=== PATIENT | male | born 1950 | race Hispanic/Latino ===

== ENCOUNTER 2024-02-28 23:54 | Emergency (ER) | payer OTHER ==
--- OUTSIDE RECORDS SUMMARY | 2024-02-28 23:58 | XMS REPORT | Clinical Summary ---
Author Name Unknown Organization [facility] Address [address] [place] [place] [address] Care Team Providers Care Sec Reporting Consultant Name Role Phone Payam Rodríguez MD Primary Care Provider [phone] Faizan Maguire MD Unavailable [phone] Simba Chávez MD Unavailable Soraya Duarte MD Unavailable [phone] Allergies Active Allergy Reactions Criticality Noted Date Comments Adhesive Dermatitis Medium 05/15/2023 Especially EKG stickers Opioids - Morphine Analogues 03/13/2023 Urinary retention He is fine with dilaudid, fentanyl, etc. Just not morphine. He understands that these too can cause urinary retention but says he is fine with it. Penicillins High 03/13/2023 Hives Medications * This document contains information received from the source organization and may not represent a complete record from that organization. aspirin 81 mg EC tablet Take 1 tablet (81 mg) by mouth daily. 021 Active metFORMIN (GLUCOPHAGE-XR) 500 mg 24 hr tablet Take 1 tablet (500 mg) by mouth 2 (two) times a day with meals. Active fenofibrate micronized (LOFIBRA) 134 mg capsule Take 1 capsule (134 mg) by mouth. Monday and Monday only Active pioglitazone (ACTOS) 15 mg tablet Take 1 tablet (15 mg) by mouth daily. 021 Active losartan (COZAAR) 25 mg tablet Take 1 tablet (25 mg) by mouth daily. 021 Active atorvastatin (LIPITOR) 10 mg tablet Take 1 tablet (10 mg) by mouth. Monday and Monday Active cholecalciferol, vitamin D3, 25 mcg (1,000 unit) capsule Take 2 capsules (2,000 Units) by mouth daily. Active omega-3 fatty acids/fish oil (FISH OIL OMEGA 3-6-9 ORAL) Take 1 capsule by mouth daily. Active ZINC ORAL Take 50 mg by mouth daily. Active multivit with minerals/lutein (MULTIVITAMIN 50 PLUS ORAL) Take 1 tablet by mouth daily. Active glucosamine/chond ro hunt A/C/Mn (GLUCOSAMINE-SOPHY DROITIN COMPLX ORAL) Take 1 tablet by mouth daily. Active cyanocobalamin (VITAMIN B-12) 1000 mcg tablet Take 1 tablet (1,000 mcg) by mouth daily. Active ascorbic acid, vitamin C, (vitamin C) 1000 mg tablet Take 1 tablet (1,000 mg) by mouth daily. Active vitamin E acetate (VITAMIN E ORAL) Take 180 Units by mouth daily. Active ferrous sulfate (iron) 325 mg (65 mg elemental iron per tablet) tablet Take 1 tablet (325 mg) by mouth every other day. Active folic acid (FOLVITE) 800 mcg tablet Take 0.5 tablets (400 mcg) by mouth daily. Active MAGNESIUM ORAL Take 500 mg by mouth daily. Active UNABLE TO FIND 10 drops twice daily. Med Name: CBD oil Active polyethylene glycol (Miralax) 17 gram/dose powderIndications :Adenocarcinoma, NOS of prostate gland Fill powder to marcela inside cap (17 g). Stir and Dissolve in any 4 to 8 ounces of beverage then drink solution as directed daily as needed (Aim for regular daily soft bowel movements. Hold if loose stool). 238 g 4 10:00 AM CDT 024 Active hyoscyamine sulfate (ANASPAZ) 0.125 mg disintegrating tabletIndications :Adenocarcinoma, NOS of prostate gland Dissolve 1 tablet (0.125 mg) on the tongue every 6 (six) hours as needed (bladder spasms). 20 tablet 4 10:00 AM CDT 024 Active ondansetron (ZOFRAN-ODT) 8 mg disintegrating tabletIndications :Adenocarcinoma, NOS of prostate gland Dissolve 1 tablet (8 mg) on the tongue every 6 (six) hours as needed for nausea. 10 tablet Active ondansetron (ZOFRAN) 8 mg tabletIndications :Adenocarcinoma, NOS of prostate gland Take 1 tablet (8 mg) by mouth every 8 (eight) hours as needed for nausea for up to 15 doses. 15 tablet Active sildenafil (Revatio) 20 mg tabletIndications :Adenocarcinoma, NOS of prostate gland Take 1 tablet (20 mg) by mouth daily. May take 3 to 5 tablets (60 mg to 100 mg) as needed 30 minutes prior to sexual intercourse on an empty stomach (72 hours apart) 60 tablet 11 Active tamsulosin (FLOMAX) 0.4 mg 24 hr capsule Take 1 capsule (0.4 mg) by mouth daily. 020 2023 Discontinued finasteride (PROSCAR) 5 mg tablet Take 1 tablet (5 mg) by mouth daily. 022 2023 Discontinued acetaminophen (Tylenol Extra Strength) 500 mg tabletIndications :Adenocarcinoma, NOS of prostate gland Take 2 tablets (1,000 mg) by mouth every 6 (six) hours for 2 days, THEN take 2 tablets (1,000 mg) every 6 (six) hours as needed for mild pain or moderate pain for up to 30 days. 40 tablet 2 4 10:00 AM T 2023 ibuprofen (ADVIL,MOTRIN) 600 mg tabletIndications :Adenocarcinoma, NOS of prostate gland Take 1 tablet (600 mg) by mouth every 6 (six) hours for 2 days, THEN take 1 tablet (600 mg) every 6 (six) hours as needed for mild pain or moderate pain for up to 30 days. 30 tablet 1 4 10:00 AM CDT 2023 enoxaparin (Lovenox) 40 mg/0.4 mL prefilled syringeIndication s:Adenocarcinoma, NOS of prostate gland Inject 0.4 mL (40 mg) under the skin daily for 20 days. 20 each 4 10:00 AM CDT 2023 Active Problems Problem Noted Date Diagnosed Date Gastric reflux 05/26/2023 Type 2 diabetes mellitus 05/26/2023 Hypertension 05/26/2023 Hyperlipidemia 05/26/2023 Dependence on continuous pos itive airway pressure ventilation 05/26/2023 Benign prostatic hyperplasia 05/26/2023 Adenocarcinoma, NOS of prostate gland 04/06/2023 Adenocarcinoma of prostate 03/14/2023 Encounters * This document contains information received from the source organization and may not represent a complete record from that organization. Date Type Department Care Team Description 10/17/2023 [facility]phone [facility] [address], [address] [place] [address] [place] [address] Katrin Knight RN 10/10/[address] [place] [address] Katrin Knight RN 07/17/2023 11:30 AM CDT [facility] [address] [place] [address] Payam Rodríguez MD Adenocarcinoma, NOS of prostate gland 07/17/2023 9:36 AM CDT - 07/17/2023 11:59 PM CDT Hospital Encounter [facility] [address] [place] [address] [place] [address] Payam Rodríguez MD Adenocarcinoma, NOS of prostate gland Discharge Disposition: Home 07/17/2023 Travel 07/11/2023 Telephone [facility] [address], [address] [place], [place] [address] [address] Katrin Knight RN 06/13/2023 Telephone [facility] [address] [place] [address] Payam Rodríguez MD 06/13/2023 Orders Only [facility] [address] [place], [place] [address] [address] Tagailo, Mike, RN Adenocarcinoma, NOS of prostate gland (Primary Dx) 06/05/2023 Documentation Case Management [address] [place] [id number] Josh Mota RN 06/04/2023 Telephone [facility] [address] [place] [address], [facility] [place] [address] Gordon Monreal PA 06/02/2023 Telephone [facility] [place] [facility] On[facility] [address] [place] [address], [facility] [place] [address] Mahnaz Maguire RN 05/24/2023 1:25 PM CDT - 05/24/2023 6:50 PM CDT Surgery MAIN OR [address] [place] [address] Payam Rodríguez MD ROBOTIC ASSISTED PROSTATECTOMY 05/24/2023 11:52 AM CDT Anesthesia Event MAIN OR [address] [place] [address] Juana Valdez MD 05/24/2023 10:12 AM CDT - 05/26/2023 2:15 PM CDT Hospital Encounter MAIN P09B [address] [place] [address] Payam Rodríguez MD Adenocarcinoma, NOS of prostate gland (Primary Dx) Discharge Disposition: Home 05/24/2023 Travel 05/23/2023 11:00 AM CDT - 05/23/2023 11:59 PM CDT Hospital [facility] [address] [place] [address], [facility] [place] [address] Payam Rodríguez MD Adenocarcinoma, NOS of prostate gland Discharge Disposition: Home 05/23/2023 [facility] [address] [place] [address], [facility] [place] [address] Gordon Monreal PA Adenocarcinoma, NOS of prostate gland (Primary Dx) 05/22/2023 Travel 05/19/2023 Orders Only [facility] [address] [place] [address], [facility] [place] [address] Gordon Monreal PA Adenocarcinoma, NOS of prostate gland (Primary Dx) 05/17/2023 11:59 PM CDT Anesthesia Event [facility] [address] [place] [address] Dmoonique Contreras APRN,AGACNP 05/17/2023 10:45 AM CDT POEM Appointments [facility] [address] [place] [address] Payam Rodríguez MD Adenocarcinoma, NOS of prostate gland 05/15/2023 11:00 AM CDT Office Visit [facility] [address] [place] [address] Payam Rodríguez MD Adenocarcinoma, NOS of prostate gland 05/15/2023 Travel 05/13/2023 1:15 PM CDT Ancillary Procedure [facility] [place] [address] Payam Rodríguez MD Adenocarcinoma, NOS of prostate gland 05/13/2023 12:15 PM CDT - 05/13/2023 11:59 PM CDT Hospital Encounter [facility] [address] [place] [address] Payam Rodríguez MD Adenocarcinoma, NOS of prostate gland Discharge Disposition: Home 04/06/2023 Orders Only [facility] [address] [place] [address] Gordon Monreal PA Adenocarcinoma, NOS of prostate gland (Primary Dx) 04/06/2023 Prep for Surgery [facility] [address] [place] [address], [address] [place], [place] [address] [address] Gordon Monreal PA Adenocarcinoma, NOS of prostate gland (Primary Dx) 04/06/2023 Orders Only [facility] [address] [place] [address], [address] [place], [place] [address] [address] Gordon Monreal PA Adenocarcinoma, NOS of prostate gland (Primary Dx) 03/18/2023 8:25 PM SENIOR BIOSTATISTICIAN/GROUP LEADER Ancillary Procedure [facility] [address] [place] [address] Payam Rodríguez MD Cancer 03/18/2023 8:20 PM SENIOR BIOSTATISTICIAN/GROUP LEADER Ancillary Procedure [facility] [address] [place] [address] Payam Rodríguez MD Cancer 03/18/2023 8:15 PM SENIOR BIOSTATISTICIAN/GROUP LEADER Ancillary Procedure [facility] [address] [place] [address] Payam Rodríguez MD Cancer 03/18/2023 8:10 PM SENIOR BIOSTATISTICIAN/GROUP LEADER Ancillary Procedure [facility] [address] [place] [address] Payam Rodríguez MD Cancer 03/18/2023 8:05 PM SENIOR BIOSTATISTICIAN/GROUP LEADER Ancillary Procedure [facility] [address] [place] [address] Payam Rodríguez MD Cancer 03/18/2023 8:00 PM SENIOR BIOSTATISTICIAN/GROUP LEADER Ancillary Procedure [facility] [address] [place] [address] Payam Rodríguez MD Cancer 03/13/2023 10:30 AM SENIOR BIOSTATISTICIAN/GROUP LEADER Office Visit [facility], 7th [place] [address] Payam Rodríguez MD Adenocarcinoma, NOS of prostate gland (Primary Dx) 03/13/2023 8:30 AM SENIOR BIOSTATISTICIAN/GROUP LEADER NPR MDA PATIENT ACCESS 03/13/2023 Travel after 02/28/2023 Surgical History Surgery Date Site/Laterality Comments APPENDECTOMY 02/06/1966 - 02/05/1967 COLONOSCOPY UPPER GASTROINTESTINAL ENDOSCOPY CERVICAL SPINE SURGERY 02/06/2011 - 02/06/2012 has pins MN LAPS SURG [id number] RPBIC RAD W/NRV SPARING ROBOT 05/24/2023 Abdomen/N/A Procedure: ROBOTIC ASSISTED PROSTATECTOMY; Surgeon: Payam Rodríguez MD; Location: MAIN OR; Service: UROLOGY MN LAPS SURG BILATERAL TOTAL PELVIC LMPHADECTOMY 05/24/2023 Bilateral Procedure: ROBOTIC ASSISTED PELVIC LYMPHADENECTOMY; Surgeon: Payam Rodríguez MD; Location: MAIN OR; Service: UROLOGY Medical History Medical History Date Comments Hypertension Hyperlipidemia Asbestosis Pneumonia Dependence on continuous positive airway pressur e ventilation Fatty liver Gastric reflux Polyp of colon Benign prostatic hyperplasia Arthritis Gout Type 2 diabetes mellitus Malignant neoplasm of prostate Postoperative nausea and vomiting Family History Medical History Relation Name Comments Leukemia Paternal Uncle Jatinder Stark Relation Name Status Comments Paternal Uncle Jatinder Stark Social History Tobacco Use Types Packs/Day Years Used Date Smoking Tobacco: Former Cigarettes Q uit: 1979 Passive Smoke Exposure: Past Smokeless Tobacco: Never Tobacco Cessation:Counseling Given: Not Answered Alcohol Use Standard Drinks/Week Comments Not Currently 0 (1 standard drink = 0.6 oz pur e alcohol) quit in 1982 Sex and Gender Information Value Date Recorded Sex Assigned at Male 02/13/2023 12:00 PM SENIOR BIOSTATISTICIAN/GROUP LEADER Legal Sex Male 9:29 AM SENIOR BIOSTATISTICIAN/GROUP LEADER Gender Identity Male 02/13/2023 12:00 PM SENIOR BIOSTATISTICIAN/GROUP LEADER Sexual Orientation Not on file Occupation Industry Job Start Date Job End Date former port terminal employee Not on file Not on file Not on file Obstetrics History Last Filed Vital Signs Vital Sign Reading Time Taken Comments Blood Pressure 134/73 07/17/2023 11:13 AM CDT Pulse 77 07/17/2023 11:13 AM CDT Temperature 36.4 C (97.5 F) 07/17/2023 1 1:13 AM CDT Respiratory Rate 20 07/17/2023 11:1 3 AM CDT Oxygen Saturation 96% 07/17/2023 11: 13 AM CDT Inhaled Oxygen Concentration - - Weight 102.5 kg (225 lb 15.5 oz) 2023 11:13 AM CDT Height 188.6 cm (6' 2.25") 07/17/2023 1 1:13 AM CDT Body Mass Index 28.82 07/17/2023 11:13 AM CDT Plan of Treatment Health Maintenance Due Date Last Done Comments Pneumococcal Vaccine: 65+ Ye ars (2 of 2 - PCV) 06/20/2015 06/19/2014 COVID-19 Vaccine (2023-2 5 season) 2023 10/22/2021, 05/07/2021, 10/23/2020, Additional history exists Influenza Vaccine (#1) 2023 12/02/2016, 2014 Medical Devices Implanted Type Area Deputy Jailer Device Identifier Shelf Expiration Date Model / Serial / Lot Cervical Fusion C4 Implant Midline: Spine Description:Pt with cervical spinal fusion C4 Lens Lens Bilateral: Eye Procedures Procedure Name Priority Date/Time Associated Diagnosis Comments PROSTATE SPECIFIC ANTIGEN Routine 07/17/2023 10:01 AM CDT Adenocarcinoma, NOS of prostate gland .CBC Routine 05/26/2023 3:37 AM CDT COMPLETE BLOOD COUNT W/ DIFFERENTIAL Routine 05/26/2023 3:37 AM CDT BASIC METABOLIC PANEL, CALCIUM TOTAL Routine 05/26/2023 3:37 AM CDT CREATININE BODY FLUID Routine 05/25/2023 9:07 AM CDT .CBC Routine 05/25/2023 3:17 AM CDT COMPLETE BLOOD COUNT W/ DIFFERENTIAL Routine 05/25/2023 3:17 AM CDT BASIC METABOLIC PANEL, CALCIUM TOTAL Routine 05/25/2023 3:17 AM CDT CREATININE BODY FLUID STAT 05/25/2023 2:10 AM CDT HEMOGLOBIN Routine 05/24/2023 4:27 PM CDT POC GLUCOSE SCREEN Routine 05/24/2023 4: 15 PM CDT POC GLUCOSE SCREEN Routine 05/24/2023 3: 10 PM CDT PATHOLOGY SURGICAL INTERPRETATION Routine 05/24/2023 1:22 PM CDT Adenocarcinoma, NOS of prostate gland POC GLUCOSE SCREEN Routine 05/24/2023 1: 10 PM CDT MN LAPS SURG BILATERAL TOTAL PELVIC LMPHADECTOMY 05/24/2023 11:27 AM CDT Adenocarcinoma, NOS of prostate gland Special Needs MTL@1030Early arrival time MN LAPS SURG [id number] RPBIC RAD W/NRV SPARING ROBOT 05/24/2023 11:27 AM CDT Adenocarcinoma, NOS of prostate gland Special Needs MTL@1030Early arrival time POC GLUCOSE SCREEN Routine 05/24/2023 10 :26 AM CDT EKG, 12-LEAD (PORTABLE) Routine 05/24/2023 TYPE AND SCREEN Routine 05/23/2023 11:17 AM CDT Adenocarcinoma, NOS of prostate gland TMP INTERPRETATION EXCEPTION PREOP EXPIRATION Routine 05/13/2023 2:45 PM CDT Adenocarcinoma, NOS of prostate gland .CBC Routine 05/13/2023 2:45 PM CDT Adenocarcinoma, NOS of prostate gland URINALYSIS W/REFLEX CULTURE GROUPER Routine 05/13/2023 2:45 PM CDT Adenocarcinoma, NOS of prostate gland 30-DAY PRE-OP TYPE & SCREEN Routine 05/13/2023 2:45 PM CDT Adenocarcinoma, NOS of prostate gland COMPREHENSIVE METABOLIC PANEL Routine 05/13/2023 2:45 PM CDT Adenocarcinoma, NOS of prostate gland URINALYSIS W/REFLEX CULTURE Routine 05/13/2023 2:45 PM CDT Adenocarcinoma, NOS of prostate gland HEMOGLOBIN A1C Routine 05/13/2023 2:45 PM CDT Adenocarcinoma, NOS of prostate gland TESTOSTERONE LEVEL Routine 05/13/2023 2: 45 PM CDT Adenocarcinoma, NOS of prostate gland PROSTATE SPECIFIC ANTIGEN Routine 05/13/2023 2:45 PM CDT Adenocarcinoma, NOS of prostate gland PROTHROMBIN TIME Routine 05/13/2023 2:45 PM CDT Adenocarcinoma, NOS of prostate gland APTT Routine 05/13/2023 2:45 PM CDT Adenocarcinoma, NOS of prostate gland COMPLETE BLOOD COUNT W/ DIFFERENTIAL Routine 05/13/2023 2:45 PM CDT Adenocarcinoma, NOS of prostate gland URINE CULTURE Routine 05/13/2023 2:45 PM CDT Adenocarcinoma, NOS of prostate gland CONFIRM ABORH TYPE Routine 05/13/2023 2: 42 PM CDT Adenocarcinoma, NOS of prostate gland MRI PELVIS W WO CONTRAST PROSTATE Routine 05/13/2023 2:05 PM CDT Adenocarcinoma, NOS of prostate gland after 02/28/2023 Results * PSA (07/17/2023 10:01 AM CDT) Only the most recent of2 resultswithin the time period is included. Pathologist [facility] Prostate Specific Antigen <0.1 0.0 - 4.0 ng/mL 07/17/2023 11:11 AM CDT [facility] PSA Indication Diagnostic 07/17/2023 11:11 AM CDT [facility] Blood Peripheral blood specimen / Unknown Venipuncture / Unknown 07/17/2023 10:01 AM CDT 07/17/2023 10:07 AM CDT Narrative [facility] - 07/17/2023 11:11 AM CDT "Reference range established based on adult population Results greater than 4519 ng/mL may not be reliable due to matrix effect with extended dilution as it exceeds the technical associate's recommended limit. Caution should be exercised when interpreting such values and done in conjunction with clinical context. Payam Rodríguez MD LAB BLOOD ORDERABLES Final Resu lt [facility] Unless otherwise noted, all lab tests performed by: Division of Pathology and Laboratory Medicine [address] [place] [id number] * (ABNORMAL) .CBC (05/26/2023 3:37 AM CDT) Only the most recent of3 resultswithin the time period is included. White Blood Cell 6.4 4.1 - 10.5 K/uL 05/26/2023 4:13 AM [facility] Red Blood Cell 3.55(L) 4.30 - 6.04 M/uL 05/26/2023 4:13 AM [facility] Hemoglobin 10.6(L) 13.3 - 17.4 g/dL 05/26/2023 4:13 AM [facility] Hematocrit 32.0(L) 39.5 - 51.8 % 05/26/2023 4:13 AM [facility] Mean Cell Volume 90 82 - 99 fL 05/26/2023 4:13 AM [facility] Mean Cell Hemoglobin 29.9 26.6 - 33.2 pg 05/26/2023 4:13 AM [facility] Mean Cell Hemoglobin Concentration 33.1 31.1 - 35.2 g/dL 05/26/2023 4:13 AM [facility] RDW-SD 45.5 37.5 - 49.7 fL 05/26/2023 4:13 AM [facility] Red Cell Diameter Width 13.8 11.6 - 15.5 % 05/26/2023 4:13 AM [facility] Platelet 158(L) 160 - 397 K/uL 05/26/2023 4:13 AM [facility] Mean Platelet Volume 10.7 9.1 - 12.6 fL 05/26/2023 4:13 AM [facility] INRBC 0.0 0.0 - 0.1 /100 WBC 05/26/2023 4:13 AM [facility] Comment: The INRBC (instrument NRBC) value reflects the enumeration of nucleated red blood cells contained in a 200uL sample of whole blood analyzed by the instrument. This value may differ from the NRBC value reported in a manual differential, which is based on a 100 cell differential. Neutrophil % 68.1 43.2 - 72.7 % 05/26/2023 4:13 AM [facility] Lymphocyte % 21.1 16.8 - 46.2 % 05/26/2023 4:13 AM [facility] Monocyte % 9.4 5.1 - 12.5 % 05/26/2023 4:13 AM [facility] Eosinophil % 0.6 0.4 - 6.3 % 05/26/2023 4:13 AM CDT [facility] Basophil % 0.3 0.2 - 1.4 % 05/26/2023 4:13 AM CDT [facility] IGRE % 0.5 0.1 - 1.5 % 05/26/2023 4:13 AM CDT [facility] Comment:The IGRE% includes M etamyelocytes, Myelocytes and Promyelocytes. Neutrophil Abs 4.36 1.95 - 7.25 K/uL 05/26/2023 4:13 AM CDT [facility] Lymphocyte Abs 1.35 1.01 - 3.24 K/uL 05/26/2023 4:13 AM CDT [facility] Monocyte Abs 0.60 0.24 - 0.85 K/uL 05/26/2023 4:13 AM CDT [facility] Eosinophil Abs 0.04 0.02 - 0.50 K/uL 05/26/2023 4:13 AM CDT [facility] Basophil Abs 0.02 0.02 - 0.09 K/uL 05/26/2023 4:13 AM CDT [facility] IG Abs 0.03 0.01 - 0.12 K/uL 05/26/2023 4:13 AM CDT [facility] Blood Peripheral blood specimen / Unknown Venipuncture / Unknown 05/26/2023 3:37 AM CDT 05/26/2023 4:08 AM CDT us Payam Rodríguez MD LAB BLOOD ORDERABLES Final Resu lt [facility] Unless otherwise noted, all lab tests performed by: Division of Pathology and Laboratory Medicine [address] [place] [id number] * (ABNORMAL) Basic Metabolic Panel- Total Calcium (05/26/2023 3:37 AM CDT) Only the most recent of2 resultswithin the time period is included. eGFR 93 >=60 mL/min/1.7 3 sq. m 05/26/2023 4:40 AM CDT [facility] Comment: The eGFRcr is calculated with the 2020 CKD-EPI creatinine equation using creatinine, patient's age, and sex for adults 18 years of age and older. Other factors, especially muscle mass, may affect accuracy and need to be considered. According to the Kidney Disease: Improving Global Outcomes (KDIGO) CKD Work Group 2012 Clinical Practice Guideline, chronic kidney disease (CKD) is defined as the abnormalities of kidney structure or function, present for more than 3 months, with implications for health. CKD should be classified by cause, GFR category, and albuminuria category. KDIGO guidelines provide the following GFR categories. Stage / Description / GFR mL/min/1.73 m2: G1* / Normal or high / >= 90 G2* / Mildly decreased / 60-89 G3a / Mildly to moderately decreased / 45-59 G3b / Moderately to severely decreased / 30-44 G4 / Severely decreased / 15-29 G5 / Kidney failure / <15 *In the absence of evidence of kidney damage, neither G1 nor G2 fulfill criteria for CKD. Calcium Level Total 8.8 8.2 - 10.2 mg/dL 05/26/2023 4:40 AM T [facility] Sodium Level 138 136 - 145 mmol/L 05/26/2023 4:40 AM [facility] Potassium Level 3.9 3.4 - 4.5 mmol/L 05/26/2023 4:40 AM T [facility] Chloride 107 98 - 107 mmol/L 05/26/2023 4:40 AM T [facility] CO2 22 22 - 29 mmol/L 05/26/2023 4:40 AM T [facility] Anion Gap 9 4 - 14 mmol/L 05/26/2023 4:40 AM T [facility] Creatinine 0.84 0.67 - 1.17 mg/dL 05/26/2023 4:40 AM [facility] BUN 13 6 - 23 mg/dL 05/26/2023 4:40 AM [facility] Glucose Level 121(H) 70 - 99 mg/dL 05/26/2023 4:40 AM [facility] Comment: Effective 09/02/15, the glucose reference intervals have been updated based on [place] [employer] guidelines (Standards of Medical Care in Diabetes 2016. Diabetes Care 2016; 39: S13-S22). Fasting blood glucose: Normal: 70-99 mg/dL Impaired fasting glucose (increased risk for diabetes or pre-diabetes): 100-125 mg/dL Diabetes mellitus: >/=126 mg/dL Random blood glucose: Normal: 70-199 mg/dL Note: Random glucose >100 mg/dL is associated with increased risk for diabetes. Blood Peripheral blood specimen / Unknown Venipuncture / Unknown 05/26/2023 3:37 AM CDT 05/26/2023 4:09 AM CDT us Payam Rodríguez MD LAB BLOOD ORDERABLES Final Resu lt Performing Organization Address [facility] Co de Phone Number [facility] Unless otherwise noted, all lab tests performed by: Division of Pathology and Laboratory Medicine [address] [place] [phone] * Creatinine BF (05/25/2023 9:07 AM CDT) Only the most recent of2 resultswithin the time period is included. Creatinine Body Fluid 0.93 mg/dL 05/25/2023 10:03 AM CDT [facility] Fluid (Abdominal Fluid) Non-blood Collection / Unknown 05/25/2023 9:07 AM CDT 05/25/2023 9:17 AM CDT Narrative [facility] - 05/25/2023 10:03 AM CDT This body fluid test has not been cleared or approved by the FDA. Its performance characteristics have been validated by our laboratory. No reference ranges have been established unless otherwise stated. Comparison of this result with the concentration in the blood (serum or plasma) is recommended. The test result must be interpreted in conjunction with the patient's clinical context. us Payam Rodríguez MD BODY FLUIDS AND STOOLS ORDERABL ES Final Result Performing Organization Address [facility] de Phone Number [facility] Unless otherwise noted, all lab tests performed by: Division of Pathology and Laboratory Medicine [address] [place] [phone] * (ABNORMAL) Hemoglobin (05/24/2023 4:27 PM CDT) Hemoglobin 12.1(L) 13.3 - 17.4 g/dL 05/24/2023 4:38 PM CDT [facility] Blood Peripheral blood specimen / Unknown Venipuncture / Unknown 05/24/2023 4:27 PM CDT 05/24/2023 4:32 PM CDT us Payam Rodríguez MD LAB BLOOD ORDERABLES Final Resu lt Performing Organization Address [facility] Co de Phone Number [facility] Unless otherwise noted, all lab tests performed by: Division of Pathology and Laboratory Medicine [address] [place] [phone] * (ABNORMAL) POC Glucose Screen - Fingerstick (05/24/2023 4:15 PM CDT) Only the most recent of4 resultswithin the time period is included. [facility] Glucose Screen 118(H) 70 - 99 mg/dL 05/24/2023 4:16 PM CDT [facility] POC Sample Type Capillary 05/24/2023 4:16 PM CDT [facility] Blood 05/24/2023 4:15 PM CDT 05/24/2023 4:16 PM CDT Narrative [facility] - 05/24/2023 4:16 PM CDT Capillary blood samples, e.g. obtained by fingerstick, may have inaccurate results in patients with decreased peripheral blood flow. Method description: All results are measured using Electrochemistry test methodology. The glucose in the sample mixes with the reagents on the test strip. The reaction produces an electric current. The amount of current produced is proportional to the glucose concentration in the blood. All POC Glucose screen test results, including critical values, must be interpreted and evaluated in the context of the patients' clinical findings. It is recommended to confirm any questionable test results by core lab methodology. 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 B: Lymph node(s), right, pelvic: Eight lymph nodes, no metastatic carcinoma present (0/8). C: Periprostatic fat: Fibroadipose tissue, no tumor present. D: Prostate gland and seminal vesicles: PROSTATIC ADENOCARCINOMA, OFELIA SCORE 9 (4+5). (SEE COMMENT) EXTRAPROSTATIC EXTENSION PRESENT. Right and left seminal vesicles, no tumor present. Segments of right and left vasa deferentia, no tumor present. Margins of resection free of tumor. No lymphovascular invasion identified. 06/13/2023 10:50 AM CDT [facility] Preliminary result electronically signed by Vivian Montalvo MD on 05/29/2023 at 10:29 AM Comment The prostate gland contains two foci of prostatic adenocarcinoma, in the peripheral zone. The dominant tumor focus [Ofelia score 9 (4 + 5)] is located in the right lateral, right posterolateral, and right posterior peripheral zone. This tumor focus measures 1.6 x 1 cm in the largest cross-sectional dimension and it is present in the four prostatic cross sections, focally in apex and extensively in the base. This tumor exhibits extensive extraprostatic extension in the right posterolateral surface and right superior neurovascular bundle region. The second tumor focus [Ofelia score 7 (3+4)] is located in the left lateral and left posterolateral peripheral zone. This tumor focus measures 0.2 x 0.1 cm in the largest cross-sectional dimension and it is present in one prostatic cross section and four apical sections. This tumor is confined to the prostate. The margins of resection are free of tumor. 06/13/2023 10:50 AM CDT [facility] Synoptic Checklist PROSTATE GLAND: Radical Prostatectomy PROSTATE GLAND: RADICAL PROSTATECTOMY - All Specimens 8th Edition - Protocol posted: 10/26/2022 SPECIMEN Procedure: Radical prostatectomy TUMOR Histologic Type: Acinar adenocarcinoma, conventional (usual) Histologic Grade: Grade: Grade group 5 ([place] Score 4 + 5 = 9) Intraductal Carcinoma (IDC): Present IDC Incorporated into Grade: No Cribriform Glands: Present Treatment Effect: No known presurgical therapy TUMOR QUANTITATION: Greatest Dimension of Dominant Nodule (Millimeters): 16 mm Additional Dimension of Dominant Nodule (Millimeters): 10 mm Location of Dominant Nodule: right lateral, right posterolateral, and right posterior peripheral zone Extraprostatic Extension (EPE): Present, nonfocal Location of Extraprostatic Extension: Right posterolateral (neurovascular bundle) Urinary Bladder Neck Invasion: Not identified Seminal Vesicle Invasion: Not identified Lymphatic and / or Vascular Invasion: Not Identified Perineural Invasion: Present MARGINS Margin Status: All margins negative for invasive carcinoma REGIONAL LYMPH NODES Regional Lymph Node Status: : All regional lymph nodes negative for tumor Number of Lymph Nodes Examined: 10 pTNM CLASSIFICATION (AJCC 8th Edition) Reporting of pT, pN, and (when applicable) pM categories is based on information available to the pathologist at the time the report is issued. As per the AJCC (Chapter 1, 8th Ed.) it is the managing physician s responsibility to establish the final pathologic stage based upon all pertinent information, including but potentially not limited to this pathology report. pT Category: pT3a T Suffix: (m) pN Category: pN0 06/13/2023 10:50 AM CDT [facility] Gross Description A: Lymph node(s), left, pelvic, or 17: Consists of a portion of yellow adipose tissue (5.0 x 3.5 x 1.0 cm). The specimen is serially sectioned and the cut surface reveals 2 lymph nodes (1.5 and 2.0 cm). Specimen is entirely submitted as follows. SECTION CODE: A1, one lymph node bisected; A2, one lymph node bisected; A3, remainder of the specimen. ML B: Lymph node(s), right, pelvic, or 17: Consists of multiple pieces of yellow adipose tissue (5.5 x 5.0 x 1.5 cm). The specimen is serially sectioned and the cut surface 8 possible lymph nodes ranging from (1.0 to 2.0 cm). The specimen is entirely submitted as follows. SECTION CODE: B1, two lymph nodes; B2, two lymph nodes; B3, two lymph nodes; B4, one lymph node bisected; B5, one lymph node bisected; B6, remainder of the specimen. ML C: Periprostatic fat, or 17: Consists of multiple pieces of yellow adipose tissue (2.5 x 2.0 x 0.5 cm). The specimen is serially sectioned and no lymph nodes are grossly identified. The specimen is entirely submitted in cassette C1. ML D: Prostate gland and seminal vesicles, or 17: A specimen consisting of a prostate, attached right and left seminal vesicles and attached segments of right and left vasa deferentia. The prostate gland (6.5 x 3.0 x 4.0 cm, 43.8 grams, post-fixation) has the usual shape. The soft tissue present along the right posterolateral aspect of the prostate is abundant and scant on the left side. Serial cross-sections after fixation demonstrate an area consistent with possible tumor involving the right lateral and right posterolateral peripheral zone of cross sections 2 - 4. The right seminal vesicle (3.5 x 1.5 x 0.5 cm) left seminal vesicle (3.0 x 1.5 x 0.4 cm) and segments of vasa deferentia are grossly free of tumor. INK CODE: The anterior aspect of the prostate is inked in green, left surface in red, right surface in yellow, and posterior surface in black. SECTION CODE: D1, right and left vasa deferentia margins; D2 - D7, right seminal vesicle and segment of right vas deferens from the base towards the tip; D8 - D11, left seminal vesicle and segment of left vas deferens from the base towards the tip; D12 - D14, prostatic base, right border; D15,D16, prostatic base, right posterior border; D17 - D32, prostatic base, central portion; D33 - D36, prostatic base, left border; D37, D38, prostatic base, left posterior border; D39, D40, apex anterior; D41 - D43, apex left; D44 - D46, apex posterior; D47, D48, apex right; D49 - D64, sections of the four cross sections of the prostate from apex to base. Blocks D56,D59, D60, D63 and D64 are submitted for decalcification. PT/MZ 06/13/2023 10:50 AM CDT [facility] Biomarker Block(s) Primary tumor block: D65; normal block: D20 06/13/2023 10:50 AM CDT [facility] Disclaimer "Some tests reported here may have been developed and performance characteristics determined by [facility] Laboratory Medicine. These tests have not been specifically cleared or approved by the U.S. Food and Drug Administration. If applicable, controls were reviewed and showed appropriate reactivity." 06/13/2023 10:50 AM CDT [facility] Tissue (Lymph Node(s), Left, Pelvic) 05/24/2023 1:22 PM CDT 05/24/2023 3:55 PM CDT Tissue specimen (specimen) (Lymph Node(s), Right, Pelvic) 05/24/2023 1:23 PM CDT 05/24/2023 3:55 PM CDT Tissue specimen (specimen) (Periprostatic Fat) 05/24/2023 1:24 PM CDT 05/24/2023 3:55 PM CDT Tissue specimen (specimen) (Prostate Gland and Seminal Vesicles) 05/24/2023 3:29 PM CDT 05/24/2023 3:55 PM CDT Payam Rodríguez MD LAB PATHOLOGY ORDERABLES Final Result [facility] [address] [address], [place] * EKG, 12-Lead (05/24/2023) CHELI Moscoso APRN ECG ORDERABLES Fi nal Result [facility] * Type and Screen (05/23/2023 11:17 AM CDT) ABORh O POS 05/23/2023 11:06 AM CDT [facility] ABSC Negative 05/23/2023 11:06 AM CDT [facility] Clot Expiration 05/26/2023 23:59 05/23/2023 11:06 AM CDT [facility] Historical Record Check Complete 05/23/2023 11:06 AM CDT [facility] Blood Peripheral blood specimen / Unknown Venipuncture / Unknown 05/23/2023 11:17 AM CDT 05/23/2023 11:21 AM CDT Payam Rodríguez MD BLOOD BANK TEST ORDERABLES Kimberly gu Result [facility] [id number] [place] [address] * Urinalysis with Reflex Culture (05/13/2023 2:45 PM CDT) Urine Appearance Clear Clear 05/13/19 24 3:37 PM CDT [facility] Comment:This result was prev iously suppressed from the chart. Urine Color Straw Colorless, Straw, Yellow, Dark Yellow, Straw-Yellow 05/13/2023 3:37 PM CDT [facility] Comment:This result was prev iously suppressed from the chart. Urine Specific [place] 1.034 1.003 - 1.035 05/13/2023 3:37 PM CDT [facility] Comment:This result was prev iously suppressed from the chart. Urine pH 5.5 5.0 - 8.0 05/13/2023 3:37 PM CDT [facility] Comment:This result was prev iously suppressed from the chart. Urine Glucose Negative Negative mg/dL 05/13/2023 3:37 PM CDT [facility] Comment:This result was prev iously suppressed from the chart. Urine Ketones Negative Negative mg/dL 05/13/2023 3:37 PM CDT [facility] Comment:This result was prev iously suppressed from the chart. Urine Blood Negative Negative 05/13/2023 3:37 PM CDT [facility] Comment:This result was prev iously suppressed from the chart. Urine Protein Negative Negative mg/dL 05/13/2023 3:37 PM CDT [facility] Comment:This result was prev iously suppressed from the chart. Urine Bilirubin Negative Negative 3:37 PM CDT [facility] Urine Urobilinogen Negative Negative 05/13/2023 3:37 PM CDT [facility] Urine Nitrite Negative Negative 05/13/2023 3:37 PM CDT [facility] Comment:This result was prev iously suppressed from the chart. Urine Leukocyte Esterase Negative Negative 05/13/2023 3:37 PM CDT [facility] Comment:This result was prev iously suppressed from the chart. Urine Mucous Not Seen Not Seen, Trace /HPF 05/13/2023 3:37 PM CDT [facility] Comment:This result was prev iously suppressed from the chart. Urine Bacteria Not Seen Not Seen /HPF 05/13/2023 3:37 PM CDT [facility] Comment:This result was prev iously suppressed from the chart. Urine Squamous Epithelial Cells OCC Not Seen, OCC, Rare /HPF 05/13/2023 3:37 PM CDT [facility] Comment:This result was prev iously suppressed from the chart. Urine WBC 05/13/2023 3:37 PM CDT [facility] Comment:None Seen Urine RBC 05/13/2023 3:37 PM CDT [facility] Comment:None Seen Urine (Urine Clean Catch) Non-blood Collection / Unknown 05/13/2023 2:45 PM CDT 05/13/2023 3:09 PM CDT Narrative [facility] - 05/13/2023 3:37 PM CDT Some reporting parameters within the Urinalysis test have changed due to the implementation of new instrumentation in the Main [place], allowing greater sensitivity of measurement. Urinalysis results reported by [facility] using existing instrumentation, as well as Urinalysis testing performed manually or by back-up methodology at the main [place], will remain relatively unchanged. New reporting parameters and units will now be reported for all campuses. us Payam Rodríguez MD URINE ORDERABLES Final Result [facility] Unless otherwise noted, all lab tests performed by: Division of Pathology and Laboratory Medicine [address] [place] [phone] * 30-Day Pre-Op Type and Screen (05/13/2023 2:45 PM CDT) ABORh O POS 05/13/2023 2:35 PM CDT [facility] ABSC Negative 05/13/2023 2:35 PM CDT [facility] BB Criteria Met Criteria met 05/13/2023 2:35 PM CDT [facility] Historical Record Check No History 05/13/2023 2:35 PM CDT [facility] Blood Peripheral blood specimen / Unknown Venipuncture / Unknown 05/13/2023 2:45 PM CDT 05/13/2023 3:12 PM CDT Payam Rodríguez MD BLOOD BANK TEST ORDERABLES Kimberly l Result Performing Organization Address City/[facility]/ZIP Co de Phone Number [facility] [id number] [place] [address] * TMP Interpretation Exception PreOp Expiration (05/13/2023 2:45 PM CDT) TMP Exception Patient's pre-op Type and Screen shows no evidence of RBC alloantibody(ies). CLINICAL INFORMATION PROVIDED BY THE ANESTHESIOLOGISTS AND PATIENT WOULD ALLOW FOR THIS SAMPLE TO BE USED UP TO 30 DAYS FOR TYPE AND SCREEN FOR SURGERY ONLY. 05/14/2023 10:07 AM CDT [facility] TMP Signature . 05/14/2023 10:07 AM CDT [facility] Blood Peripheral blood specimen / Unknown Venipuncture / Unknown 05/13/2023 2:45 PM CDT 05/13/2023 3:12 PM CDT Payam Rodríguez MD BLOOD BANK TEST ORDERABLES Kimberly l Result [facility] [id number] [place] [address] * (ABNORMAL) Comprehensive Metabolic Panel (05/13/2023 2:45 PM CDT) Bilirubin Total 0.5 0.0 - 1.2 mg/dL 05/13/2023 4:03 PM CDT [facility] Comment:Indocyanine Green (I CG) may cause falsely elevated bilirubin results. Total and direct bilirubin must not be measured from samples containing indocyanine green. False elevation of total bilirubin can be seen in patients with IgG concentrations above 28 g/L. eGFR 81 >=60 mL/min/1. 73 sq. m 05/13/2023 4:03 PM CDT [facility] Comment: The eGFRcr is calculated with the 2020 CKD-EPI creatinine equation using creatinine, patient's age, and sex for adults 18 years of age and older. Other factors, especially muscle mass, may affect accuracy and need to be considered. According to the Kidney Disease: Improving Global Outcomes (KDIGO) CKD Work Group 2012 Clinical Practice Guideline, chronic kidney disease (CKD) is defined as the abnormalities of kidney structure or function, present for more than 3 months, with implications for health. CKD should be classified by cause, GFR category, and albuminuria category. KDIGO guidelines provide the following GFR categories. Stage / Description / GFR mL/min/1.73 m2: G1* / Normal or high / >= 90 G2* / Mildly decreased / 60-89 G3a / Mildly to moderately decreased / 45-59 G3b / Moderately to severely decreased / 30-44 G4 / Severely decreased / 15-29 G5 / Kidney failure / <15 *In the absence of evidence of kidney damage, neither G1 nor G2 fulfill criteria for CKD. Tot Protein 7.2 6.4 - 8.3 gm/dL 05/13/2023 4:03 PM CDT [facility] Calcium Level Total 9.9 8.2 - 10.2 mg/dL 05/13/2023 4:03 PM CDT [facility] Alkaline Phosphatase 61 40 - 129 U/L 05/13/2023 4:03 PM CDT [facility] Albumin Level 4.8 3.5 - 5.2 gm/dL 05/13/2023 4:03 PM CDT [facility] AST 36 <=40 U/L 05/13/2023 4:03 PM CDT [facility] ALT 43(H) <=41 U/L 05/13/2023 4:03 PM CDT [facility] Sodium Level 138 136 - 145 mmol/L 05/13/2023 4:03 PM CDT [facility] Potassium Level 4.4 3.4 - 4.5 mmol/L 05/13/2023 4:03 PM CDT [facility] Chloride 103 98 - 107 mmol/L 05/13/2023 4:03 PM CDT [facility] CO2 23 22 - 29 mmol/L 05/13/2023 4:03 PM CDT [facility] Anion Gap 12 4 - 14 mmol/L 05/13/2023 4:03 PM CDT [facility] Creatinine 0.99 0.67 - 1.17 mg/dL 05/13/2023 4:03 PM CDT [facility] BUN 16 6 - 23 mg/dL 05/13/2023 4:03 PM CDT [facility] Glucose Level 123(H) 70 - 99 mg/dL 05/13/2023 4:03 PM CDT [facility] Comment: Effective 09/02/15, the glucose reference intervals have been updated based on [place] [employer] guidelines (Standards of Medical Care in Diabetes 2016. Diabetes Care 2016; 39: S13-S22). Fasting blood glucose: Normal: 70-99 mg/dL Impaired fasting glucose (increased risk for diabetes or pre-diabetes): 100-125 mg/dL Diabetes mellitus: >/=126 mg/dL Random blood glucose: Normal: 70-199 mg/dL Note: Random glucose >100 mg/dL is associated with increased risk for diabetes. Blood Peripheral blood specimen / Unknown Venipuncture / Unknown 05/13/2023 2:45 PM CDT 05/13/2023 3:13 PM CDT us Payam Rodríguez MD LAB BLOOD ORDERABLES Final Resu lt [facility] Unless otherwise noted, all lab tests performed by: Division of Pathology and Laboratory Medicine [address] [place] [id number] * aPTT (05/13/2023 2:45 PM CDT) Pathologist [facility] Activated PTT 30.9 24.1 - 35.5 second(s) 05/13/2023 3:59 PM CDT [facility] Blood Peripheral blood specimen / Unknown Venipuncture / Unknown 05/13/2023 2:45 PM CDT 05/13/2023 3:10 PM CDT us Payam Rodríguez MD LAB BLOOD ORDERABLES Final Resu lt Performing Organization Address City/[facility]/ZIP Co de Phone Number [facility] Unless otherwise noted, all lab tests performed by: Division of Pathology and Laboratory Medicine [address] [place] [phone] * (ABNORMAL) Prothrombin Time with INR (05/13/2023 2:45 PM CDT) [facility] Prothrombin Time 14.4 11.9 - 14.5 second(s) 05/13/2023 3:59 PM CDT [facility] International Normalization Ratio 1.13(H) 0.87 - 1.12 05/13/2023 3:59 PM CDT [facility] Blood Peripheral blood specimen / Unknown Venipuncture / Unknown 05/13/2023 2:45 PM CDT 05/13/2023 3:10 PM CDT us Payam Rodríguez MD LAB BLOOD ORDERABLES Final Resu lt Performing Organization Address City/[facility]/ZIP Co de Phone Number [facility] Unless otherwise noted, all lab tests performed by: Division of Pathology and Laboratory Medicine [address] [place] [id number] * Urine Culture (05/13/2023 2:45 PM CDT) [facility] Urine Culture No Growth. 05/15/2023 9:43 AM CDT [facility] Urine (Urine Clean Catch) Non-blood Collection / Unknown 05/13/2023 2:45 PM CDT 05/13/2023 8:07 PM CDT Result Denisse Rodríguez MD MICROBIOLOGY - GENERAL ORDERABL ES Final Result Performing Organization Address City/[facility]/ZIP Co de Phone Number [facility] Unless otherwise noted, all lab tests performed by: Division of Pathology and Laboratory Medicine [address] [place] [phone] * Testosterone Level (05/13/2023 2:45 PM CDT) Testosterone Total 446 193 - 740 ng/dL 05/13/2023 4:03 PM CDT [facility] Blood Peripheral blood specimen / Unknown Venipuncture / Unknown 05/13/2023 2:45 PM CDT 05/13/2023 3:13 PM CDT Narrative [facility] [facility] - 05/13/2023 4:03 PM CDT Reference Ranges: Male: Age 20 - 49 249 - 836 Age >=50 193 - 740 Female: Age 20 - 49 8 - 48 Age >=50 3 - 41 us Payam Rodríguez MD LAB BLOOD ORDERABLES Final Resu lt Performing Organization Address [facility] Co de Phone Number [facility] Unless otherwise noted, all lab tests performed by: Division of Pathology and Laboratory Medicine [address] [place] [id number] * Hemoglobin A1c (05/13/2023 2:45 PM CDT) Pathologist [facility] Hemoglobin A1c 5.5 4.3 - 5.6 % 05/13/2023 4:10 PM CDT [facility] Blood Peripheral blood specimen / Unknown Venipuncture / Unknown 05/13/2023 2:45 PM CDT 05/13/2023 3:13 PM CDT Narrative [facility] - 05/13/2023 4:10 PM CDT HbA1c values >=6.5% are diagnostic of diabetes mellitus. Diagnosis should be confirmed by repeat testing. Therapeutic Action suggested: >8.0% HbA1c; Goal of therapy: <7.0% HbA1c us Payam Rodríguez MD LAB BLOOD ORDERABLES Final Resu lt [facility] Unless otherwise noted, all lab tests performed by: Division of Pathology and Laboratory Medicine [address] [place] [address] * Confirm ABORh (05/13/2023 2:42 PM CDT) ABORh Confirm O POS 05/13/2023 2:41 PM CDT [facility] - TRANSFUSION SERVICES Blood Peripheral blood specimen / Unknown Venipuncture / Unknown 05/13/2023 2:42 PM CDT 05/13/2023 3:11 PM CDT Payam Rodríguez MD BLOOD BANK TEST ORDERABLES Kimberly gu Result [facility] - TRANSFUSION SERVICES [facility] Transfusion Services [address] [facility] [address] [place] [address] * MRI Pelvis with and without Contrast - Prostate (05/13/2023 2:05 PM CDT) Anatomical Region Laterality Modality Pelvis Magnetic Resonan ce 05/13/2023 2:16 PM CDT Impressions 05/13/2023 2:41 PM CDT Dominant right mid gland peripheral zone PIRADS 5 lesion with small extraprostatic extension in close proximity to the right neurovascular bundle; no definite seminal vesicle involvement. No definite adenopathy or osseous metastasis. Estimated prostate volume of 36 cc with estimated PSA density of 0.22 ng/mL/cc. OVERALL PI-RADS category: 5. ACTIONABLE ITEMS/RECOMMENDATIONS*: See impression. *An Actionable Finding is a finding that may be unrelated to the original reason for imaging but potentially actionable, meaning further investigation may be necessary. The Actionable Findings Vigilance Unit (AFVU) assists medical providers with responding to additional radiologic findings that are unexpected and potentially actionable. Narrative 05/13/2023 2:41 PM CDT Examination: MRI PELVIS W WO CONTRAST PROSTATE 05/13/2023 2:05 PM. Clinical History: Adenocarcinoma of prostate gland. PSA: 7.95 (02/13/2023). Indication: Check for recurrence or metastatic disease. Ofelia score: 4+3. Comparison: OSI MRI pelvis 11/07/2022. Technique: Prostate MRI acquired at 1.5T with an endorectal coil. Three-plane localizer, axial T1W and axial DWI with ADC reconstruction of the pelvis were performed. Three plane T2W, axial T1W, and axial DWI with ADC reconstruction of the prostate were performed. Axial dynamic contrast-enhanced images were acquired of the prostate. Findings: Prostate measurement (3-plane): 5.1 x 2.6 x 5.2 cm (transverse by AP by craniocaudal); estimated prostate volume of 36 cc. Hemorrhage: None. Benign prostatic hypertrophy: Moderate. Dominant lesion measures 1.6 cm and is located in the right peripheral zone at the level of the mid gland on: Image # 16, series 8 Location: 7-8 o'clock Extra-prostatic disease or neurovascular bundle invasion: Small extraprostatic extension is seen in proximity to the right neurovascular bundle; no definite seminal vesicle involvement. Lesion overall PI-RADS Category: 5. Lymphadenopathy: not found. No clear involvement of the bladder neck, distal sphincter, or rectum. Bones: No suspicious lesion. Other: unremarkable. Procedure Note Gunnar Zepeda MD - 05/13/2023 Examination: MRI PELVIS W WO CONTRAST PROSTATE 05/13/2023 2:05 PM. Clinical History: Adenocarcinoma of prostate gland. PSA: 7.95(02/13/2023). Indication: Check for recurrence or metastatic disease. Ofeila score: 4+3. Comparison: OSI MRI pelvis 11/07/2022. Technique: Prostate MRI acquired at 1.5T with an endorectal coil.Three-plane localizer, axial T1W and axial DWI with ADC reconstruction ofthe pelvis were performed. Three plane T2W, axial T1W, and axial DWI withADC reconstruction of the prostate were performed. Axial dynamiccontrast-enhanced images were acquired of the prostate. Findings: Prostate measurement (3-plane): 5.1 x 2.6 x 5.2 cm (transverse by AP bycraniocaudal); estimated prostate volume of 36 cc. Hemorrhage: None. Benign prostatic hypertrophy: Moderate. Dominant lesion measures 1.6 cm and is located in the right peripheralzone at the level of the mid gland on: Image # 16, series 8 Location: 7-8 o'clock Extra-prostatic disease or neurovascular bundle invasion: Smallextraprostatic extension is seen in proximity to the right neurovascularbundle; no definite seminal vesicle involvement. Lesion overall PI-RADS Category: 5. Lymphadenopathy: not found. No clear involvement of the bladder neck, distal sphincter, or rectum. Bones: No suspicious lesion. Other: unremarkable. IMPRESSION: Dominant right mid gland peripheral zone PIRADS 5 lesion with smallextraprostatic extension in close proximity to the right neurovascularbundle; no definite seminal vesicle involvement. No definite adenopathy or osseous metastasis. Estimated prostate volume of 36 cc with estimated PSA density of 0.22ng/mL/cc. OVERALL PI-RADS category: 5. ACTIONABLE ITEMS/RECOMMENDATIONS*: See impression. *An Actionable Finding is a finding that may be unrelated to the originalreason for imaging but potentially actionable, meaning furtherinvestigation may be necessary. The Actionable Findings Vigilance Unit(AFVU) assists medical providers with responding to additional radiologicfindings that are unexpected and potentially actionable. Payam Rodríguez MD [facility] MRI ORDERABLES Final Result after 02/28/2023 Insurance MEDICARE PART A AND B AET SENIOR SUPPLEMENT-SECONDARY ONLY MEDICARE PART A AND B AETNA SENIOR SUPPLEMENT-SECONDARY ONLY Advance Directives Documents on File Type Date Recorded Patient Human Resource Management Instructor Expl anation Advance Directives: Medical Power of Integration Software Developer 05/23/2023 Medical Power of Att orney * Full Code (Latest Code Status on File) Date Activated Date Inactivated Comments 05/24/2023 8:06 PM 05/26/2023 4:21 PM Care Teams Sec Reporting Consultant Relationship Specialty Start Date End Date Payam Rodrí[place] [address] [place] [id number] [email or web address] PCP - General Urology 02/13/23 Faizan Maguire MD [address] [place] [place] [id number] [email or web address] 03/13/23 Simba Chávez MD [address] [facility] [address] [place] [address] Urology 03/13/23 Soraya Duarte MD [facility] [facility] [address] [facility], [place] [address] Cardiology 03/13/23
[2024-02-29] MEDS ORDERED: HYDROCODONE/APAP 5/325 MG TAB ONE (00:35)
[2024-02-29] MEDS ORDERED: HYDROCODONE/APAP 10/325 TAB ONE (02:50)
[2024-02-29] MEDS ORDERED: methocarbamoL 750 MG TAB ONE (02:50)
--- NOTE | 2024-02-29 03:28 | ER ---
Nurse's Notes [facility] Name: Don Stark Age: 74 yrs Sex: Male : 1950 Arrival Date: 02/28/2024 Time: 23:54 Bed 5 Private MD: Diagnosis: Acute left wrist sprain, acute left shoulder contusion, acute left forearm contusion, acute neck sprain, Fall from standing ;Other specified sprain of left wrist, initial encounter Presentation: 02/28 00:14 Chief complaint: Patient states: slipped on ice and fell on left arm. Coronavirus vc1 screen: Client denies travel out of the [place] in the last 14 days. At this time, the client does not indicate any symptoms associated with coronavirus-19. Ebola Screen: Patient negative for fever greater than or equal to 101.5 degrees Fahrenheit, and additional compatible Ebola Virus Disease symptoms Patient denies exposure to infectious person. Patient denies travel to an Ebola-affected area in the 21 days before illness onset. No symptoms or risks identified at this time. Initial Sepsis Screen: Does the patient meet any 2 criteria? No. Patient's initial sepsis screen is negative. Does the patient have a suspected source of infection? No. Patient's initial sepsis screen is negative. Risk Assessment: Do you want to hurt yourself or someone else? Patient reports no desire to harm self or others. Onset of symptoms was February 28, 2024. Care prior to arrival: None. 00:14 Method Of Arrival: Ambulatory vc1 00:14 Acuity: DIANN 3 vc1 Triage Assessment: 00:21 General: Appears in no apparent distress. uncomfortable, well groomed, well developed, vc1 Behavior is calm, cooperative, appropriate for age. Pain: Complains of pain in left arm Pain does not radiate. EENT: No deficits noted. No signs and/or symptoms were reported regarding the EENT system. Neuro: Level of Consciousness is awake, alert, obeys commands, Oriented to person, place, time, situation, Appropriate for age. Cardiovascular: Capillary refill < 3 seconds. Respiratory: Airway is patent Respiratory effort is even, unlabored, Respiratory pattern is regular, symmetrical, Breath sounds are clear bilaterally. GI: No deficits noted. No signs and/or symptoms were reported involving the gastrointestinal system. : No deficits noted. No signs and/or symptoms were reported regarding the genitourinary system. Derm: Skin is intact, is healthy with good turgor, Skin is dry, Skin is normal, Skin temperature is warm. Musculoskeletal: Circulation, motion, and sensation intact. Swelling present in left arm. Historical: - Allergies: 00:16 Morphine; vc1 00:16 PENICILLINS; vc1 - PMHx: 00:16 DM; fatty liver; Hypertensive disorder; PROSTATE CA; vc1 - PSHx: 00:16 Appendectomy; Prostate removed and some lymph nodes; right leg (laceration into muscle);vc1 - Immunization history:: Adult Immunizations unknown. - Infectious Disease History:: Denies. - Social history:: Smoking status: unknown. Screenin:19 [facility] ED Fall Risk Assessment (Adult) History of falling in the last 3 months, vc1 including since admission Yes- single mechanical fall (1 pt) Confusion or Disorientation No (0 pts) Intoxicated or Sedated No (0 pts) Impaired Gait No (0 pts) Mobility Assist Device Used No (0 pt) Altered Elimination No (0 pt) Score/Fall Risk Level 0 - 2 = Low Risk Oriented to surroundings, Maintained a safe environment, Educated pt \T\ family on fall prevention, incl call for assistance when getting out of bed, Hourly rounding (assess needs \T\ fall precautionary measures) done. Abuse screen: Denies threats or abuse. Nutritional screening: No deficits noted. Tuberculosis screening: No symptoms or risk factors identified. Assessment: 01:23 Reassessment: Patient appears in no apparent distress at this time. Patient and/or bm8 family updated on plan of care and expected duration. Pain level reassessed. Patient is alert, oriented x 3, equal unlabored respirations, skin warm/dry/pink. General: Appears in no apparent distress. uncomfortable, Behavior is calm, cooperative, appropriate for age. Pain: Complains of pain in left arm and left leg and lateral aspect of left knee and right subscapular area and right scapular area Pain currently is 5 out of 10 on a pain scale. Neuro: No deficits noted. Level of Consciousness is awake, alert, obeys commands, Oriented to person, place, time, situation, Appropriate for age. Cardiovascular: Denies chest pain. Respiratory: Airway is patent Trachea midline Respiratory effort is even, unlabored, Respiratory pattern is regular, symmetrical, Breath sounds are clear bilaterally. GI: No deficits noted. : No signs and/or symptoms were reported regarding the genitourinary system. EENT: No signs and/or symptoms were reported regarding the EENT system. Derm: No signs and/or symptoms reported regarding the dermatologic system. Musculoskeletal: Range of motion: limited in left shoulder, left elbow and left wrist Swelling present in left arm Reports pain in left arm and left leg. 02:13 Reassessment: Patient appears in no apparent distress at this time. No changes from bm8 previously documented assessment. Patient and/or family updated on plan of care and expected duration. Pain level reassessed. Patient is alert, oriented x 3, equal unlabored respirations, skin warm/dry/pink. 03:33 Reassessment: Patient appears in no apparent distress at this time. Patient and/or bm8 family updated on plan of care and expected duration. Pain level reassessed. Patient is alert, oriented x 3, equal unlabored respirations, skin warm/dry/pink. Patient states feeling better. Patient states symptoms have improved. Vital Signs: 00:14 BP 135 / 71; Pulse 66; Resp 19; Temp 97.9; Pulse Ox 100% ; Weight 106.14 kg; Height 6 vc1 ft. 3 in. ; 01:23 BP 122 / 85; Pulse 67; Resp 17; Temp 97.9; Pulse Ox 98% ; Pain 7/10; bm8 02:13 BP 134 / 61; Pulse 74; Resp 18; Temp 97.9; Pulse Ox 94% ; Pain 6/10; bm8 03:33 BP 127 / 80; Pulse 74; Resp 17; Temp 97.9; Pulse Ox 99% ; Pain 3/10; bm8 00:14 Body Mass Index 29.25 (106.14 kg, 190.5 cm) vc1 01:23 Pain Scale: Adult bm8 02:13 Pain Scale: Adult bm8 03:33 Pain Scale: Adult bm8 [place] Coma Score: 01:23 Eye Response: spontaneous(4). Motor Response: obeys commands(6). Verbal Response: bm8 oriented(5). Total: 15. 02:13 Eye Response: spontaneous(4). Motor Response: obeys commands(6). Verbal Response: bm8 oriented(5). Total: 15. 03:33 Eye Response: spontaneous(4). Motor Response: obeys commands(6). Verbal Response: bm8 oriented(5). Total: 15. ED Course: 02/27 23:59 Patient arrived in ED. gm2 02/28 00:13 Shaila Can FNP-C is [facility]. kb 00:13 Cuate Zacarias MD is Attending Physician. kb 00:16 Triage completed. vc1 00:17 Arm band placed on right wrist. vc1 00:19 Patient has correct armband on for positive identification. Bed in low position. vc1 Provided Education on: fall safety. 00:55 Forearm Left XRAY In Process Unspecified. EDMS 00:55 Humerus Left XRAY In Process Unspecified. EDMS 00:55 XRAY C Spine Ap/lat In Process Unspecified. EDMS 01:22 Eldno Baer, RN is Primary Nurse. bm8 01:23 No provider procedures requiring assistance completed. Patient did not have IV access bm8 during this emergency room visit. 03:21 Hand Left 3 View XRAY In Process Unspecified. EDMS Administered Medications: 00:34 Drug: HYDROcodone-acetaminophen PO 5 mg-325 mg 1 tabs PO once Route: PO; bm8 01:29 Follow up: Response: No adverse reaction bm8 02:52 Drug: [place] PO 10 mg-325 mg 1 tabs PO once Route: PO; bm8 03:34 Follow up: Response: No adverse reaction bm8 02:52 Drug: Methocarbamol PO 750 mg PO once Route: PO; bm8 03:34 Follow up: Response: No adverse reaction bm8 Medication: 00:26 VIS not applicable for this client. vc1 Outcome: 03:27 Discharge ordered by . sp4 03:33 Discharged to home ambulatory, with family, bm8 03:33 Condition: stable 03:33 Discharge instructions given to patient, family, Instructed on discharge instructions, follow up and referral plans. no drinking with medication, no driving heavy equipment, medication usage, safety practices, Demonstrated understanding of instructions, follow-up care, medications, 03:35 Prescriptions given X 3, bm8 03:35 Patient left the ED. bm8 Signatures: Dispatcher [employer] EDMS Shaila Can FNP-C FNP-Ckb Calcote, Vanessa, RN RN vc1 Cuate Zacarias MD MD sp4 Sherrell Feng gm2 Eldon Baer, ABA RN bm8
--- NOTE | 2024-02-29 03:28 | EDPHYS ---
Physician Documentation [facility] Name: Don Stark Age: 74 yrs Sex: Male : 1950 Arrival Date: 02/28/2024 Time: 23:54 Bed 5 Private MD: ED Physician Cuate Zacarias HPI: 02/28 00:27 This 74 yrs old Male presents to ER via Ambulatory with complaints of Fall kb Injury, Arm Pain. 00:27 Pt is a 74 year old male who presents for pain to left knee, neck, left arm and right kb side of upper back. States he was walking out of physical therapy and slipped on ice causing him to fall onto left side. States he was trying to wait until tomorrow to call his dr, but the pain got worse in his arm when he laid down this evening and he couldn't sleep. Denies hitting head, loc. . Historical: - Allergies: 00:16 Morphine; vc1 00:16 PENICILLINS; vc1 - PMHx: 00:16 DM; fatty liver; Hypertensive disorder; PROSTATE CA; vc1 - PSHx: 00:16 Appendectomy; Prostate removed and some lymph nodes; right leg (laceration into muscle);vc1 - Immunization history:: Adult Immunizations unknown. - Infectious Disease History:: Denies. - Social history:: Smoking status: unknown. ROS: 00:27 Constitutional: As per HPI kb Exam: 00:27 Constitutional: This is a well developed, well nourished patient who is awake, alert, kb and in no acute distress. Head/Face: Normocephalic, atraumatic. ENT: Moist Mucous membranes Cardiovascular: Regular rate Respiratory: Respirations even and unlabored. No increased work of breathing. Talking in full sentences Abdomen/GI: Soft, non-tender. No distention Skin: Warm, dry with normal turgor. Normal color. Neuro: Awake and alert, GCS 15, oriented to person, place, time, and situation. 00:27 Neck: External neck: is normal, C-spine: vertebral tenderness, that is mild, appreciated at C6 and C7, 00:27 Back: pain, that is mild, of the right scapular area and right subscapular area, 00:27 Musculoskeletal/extremity: Extremities: grossly normal except: noted in the lateral aspect of left knee: pain, noted in the left arm: decreased ROM, pain, tenderness, ROM: limited active range of motion due to pain, in the left arm, Circulation is intact in all extremities. Sensation intact. Weight bearing: able to fully bear weight, Vital Signs: 00:14 BP 135 / 71; Pulse 66; Resp 19; Temp 97.9; Pulse Ox 100% ; Weight 106.14 kg; Height 6 vc1 ft. 3 in. ; 01:23 BP 122 / 85; Pulse 67; Resp 17; Temp 97.9; Pulse Ox 98% ; Pain 7/10; bm8 02:13 BP 134 / 61; Pulse 74; Resp 18; Temp 97.9; Pulse Ox 94% ; Pain 6/10; bm8 03:33 BP 127 / 80; Pulse 74; Resp 17; Temp 97.9; Pulse Ox 99% ; Pain 3/10; bm8 00:14 Body Mass Index 29.25 (106.14 kg, 190.5 cm) vc1 01:23 Pain Scale: Adult bm8 02:13 Pain Scale: Adult bm8 03:33 Pain Scale: Adult bm8 [place] Coma Score: 01:23 Eye Response: spontaneous(4). Motor Response: obeys commands(6). Verbal Response: bm8 oriented(5). Total: 15. 02:13 Eye Response: spontaneous(4). Motor Response: obeys commands(6). Verbal Response: bm8 oriented(5). Total: 15. 03:33 Eye Response: spontaneous(4). Motor Response: obeys commands(6). Verbal Response: bm8 oriented(5). Total: 15. MDM: 00:13 Medical Screening Exam initiated kb 00:30 Differential diagnosis: contusion, fracture, sprain, strain. Data reviewed: vital kb signs, nurses notes. Historians other than the Patient: Spouse/Significant Other: . 01:02 Transition of care: After a detail discussion of the patient's case, care is kb transferred to Cuate Zacarias MD. 02:22 ED course: EXAM: XR Left Forearm, 2 Views CLINICAL HISTORY: The patient is 74 years old sp4 and is Male; PAIN TECHNIQUE: Frontal and lateral views of the left forearm. COMPARISON: No relevant prior studies available. FINDINGS: BONES/JOINTS: Unremarkable. No acute fracture. No dislocation. SOFT TISSUES: Unremarkable. IMPRESSION: Normal left forearm radiographs. . ED course: EXAM: XR Left Humerus, 2 or More Views CLINICAL HISTORY: The patient is 74 years old and is Male; PAIN TECHNIQUE: Frontal and lateral views of the left humerus. COMPARISON: No relevant prior studies available. FINDINGS: BONES/JOINTS: Unremarkable. No acute fracture. No dislocation. SOFT TISSUES: Unremarkable. IMPRESSION: Normal left humerus radiographs.. ED course: EXAM: XR Cervical Spine, 2 or 3 Views CLINICAL HISTORY: The patient is 74 years old and is Male; PAIN TECHNIQUE: Frontal and lateral views of the cervical spine. COMPARISON: No relevant prior studies available. FINDINGS: VERTEBRAE: Unremarkable. No definite fracture. Normal alignment. DISC SPACES: Evidence of anterior cervical disc fusion at C5-C6 is noted. The hardware is engaged. Intervertebral disc space narrowing with osteophyte formation from C3 through C7 is noted. Facet arthropathy of the cervical spine as noted. SOFT TISSUES: Unremarkable. 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 . 02/28 00:18 Order name: Forearm Left XRAY kb 02/28 00:18 Order name: Humerus Left XRAY kb 02/28 00:18 Order name: XRAY C Spine Ap/lat kb 02/28 02:39 Order name: Hand Left 3 View XRAY sp4 Administered Medications: 00:34 Drug: HYDROcodone-acetaminophen PO 5 mg-325 mg 1 tabs PO once Route: PO; bm8 01:29 Follow up: Response: No adverse reaction bm8 02:52 Drug: [place] PO 10 mg-325 mg 1 tabs PO once Route: PO; bm8 03:34 Follow up: Response: No adverse reaction bm8 02:52 Drug: Methocarbamol PO 750 mg PO once Route: PO; bm8 03:34 Follow up: Response: No adverse reaction bm8 Disposition: 03:25 Co-signature as Attending Physician, Cuate Zacarias MD I agree with the assessment sp4 and plan of care. I reviewed the patient's care provided by the Advanced Practice Provider and agree with the diagnosis and treatment plan. Disposition Summary: 02/29/24 03:27 Discharge Ordered Notes: Location: Home sp4 Problem: new sp4 Symptoms: have improved sp4 Condition: Stable sp4 Diagnosis - Acute left wrist sprain, acute left shoulder contusion, acute left forearm sp4 contusion, acute neck sprain, Fall from standing - Other specified sprain of left wrist, initial encounter sp4 Followup: sp4 - With: Private Physician - When: 7 - 10 days - Reason: Recheck today's complaints Discharge Instructions: - Discharge Summary Sheet sp4 - Wrist Splint or Brace, Adult, [id number]-[id number] sp4 Forms: - Patient Portal Instructions sp4 Prescriptions: - Ibuprofen 800 mg Oral Tablet - take 1 tablet ORAL route every 8 hours As needed take with food; 30 tablet; sp4 Refills: 0, Product Selection Permitted - Tramadol 50 mg Oral tablet - take 1 tablet ORAL route every 8 hours as needed; 20 tablet; Refills: 0, sp4 Product Selection Permitted - methocarbamol 750 mg Oral tablet - take 2 tablets ORAL route every 8 hours for 2 days PRN muscle soreness; 60 sp4 tablet; Refills: 0, Product Selection Permitted Signatures: Dispatcher [employer] EDMS Shaila Can, Elissa Haines, RN RN vc1 Cuate Zacarias MD MD sp4 lEdon Baer, RN RN bm8 Corrections: (The following items were deleted from the chart) 00:19 00:19 Forearm Left+RAD.RAD.BRZ ordered. EDMS EDMS 00:19 00:19 Humerus Left+RAD.RAD.BRZ ordered. EDMS EDMS 00:19 00:19 C Spine Ap/Lat+RAD.RAD.BRZ ordered. EDMS EDMS 02:40 02:40 Hand Left 3 View+RAD.RAD.BRZ ordered. EDMS EDMS
--- NOTE | 2024-02-29 05:59 | RAD REPORT ---
EXAM: XR Left Humerus, 2 or More Views CLINICAL HISTORY: The patient is 74 years old and is Male; PAIN TECHNIQUE: Frontal and lateral views of the left humerus. COMPARISON: No relevant prior studies available. FINDINGS: BONES/JOINTS: Unremarkable. No acute fracture. No dislocation. SOFT TISSUES: Unremarkable. IMPRESSION: Normal left humerus radiographs. Electronically signed by: Christy Ray MD 02/29/2024 01:35 AM [facility] Due to temporary technical issues with the [employer] reporting system, reports are being jose d by the in-house radiologist without review as a courtesy to ensure prompt reporting the interpreting radiologist is fully responsible for the content of the report. Transcribed Date/Time: 02/29/2024 5:59 AM
--- NOTE | 2024-02-29 05:59 | RAD REPORT ---
EXAM: XR Left Forearm, 2 Views CLINICAL HISTORY: The patient is 74 years old and is Male; PAIN TECHNIQUE: Frontal and lateral views of the left forearm. COMPARISON: No relevant prior studies available. FINDINGS: BONES/JOINTS: Unremarkable. No acute fracture. No dislocation. SOFT TISSUES: Unremarkable. IMPRESSION: Normal left forearm radiographs. Electronically signed by: Christy Ray MD 02/29/2024 01:35 AM [facility] Due to temporary technical issues with the [employer] reporting system, reports are being jose d by the in-house radiologist without review as a courtesy to ensure prompt reporting the interpreting radiologist is fully responsible for the content of the report. Transcribed Date/Time: 02/29/2024 5:58 AM
--- NOTE | 2024-02-29 06:00 | RAD REPORT ---
EXAM: XR Cervical Spine, 2 or 3 Views CLINICAL HISTORY: The patient is 74 years old and is Male; PAIN TECHNIQUE: Frontal and lateral views of the cervical spine. COMPARISON: No relevant prior studies available. FINDINGS: VERTEBRAE: Unremarkable. No definite fracture. Normal alignment. DISC SPACES: Evidence of anterior cervical disc fusion at C5-C6 is noted. The hardware is engaged . Intervertebral disc space narrowing with osteophyte formation from C3 through C7 is noted. Facet arthropathy of the cervical spine as noted. SOFT TISSUES: Unremarkable. 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 Electronically signed by: Christy Ray MD 02/29/2024 01:35 AM [facility] Due to temporary technical issues with the [employer]ACS/[employer] reporting system, reports are being jose d by the in-house radiologist without review as a courtesy to ensure prompt reporting the interpreting radiologist is fully responsible for the content of the report. Transcribed Date/Time: 02/29/2024 5:59 AM
--- NOTE | 2024-02-29 06:00 | RAD REPORT ---
EXAM: XR Left Hand Complete, 3 or More Views CLINICAL HISTORY: The patient is 74 years old and is Male; hand pain TECHNIQUE: Frontal, lateral and oblique views of the left hand. COMPARISON: No relevant prior studies available. FINDINGS: Bones/joints: Unremarkable. No acute fracture. No dislocation. Soft tissues: Unremarkable. No radiopaque foreign body. IMPRESSION: No acute fracture or dislocation. Electronically signed by: Manuel Roche MD 02/29/2024 04:46 AM [facility] Due to temporary technical issues with the [employer]ACS/[employer] reporting system, reports are being jose d by the in-house radiologist without review as a courtesy to ensure prompt reporting the interpreting radiologist is fully responsible for the content of the report. Transcribed Date/Time: 02/29/2024 6:00 AM
[2024-02-29 07:00] VITALS: TEMP 97.9
[2024-02-29 07:24] VITALS: BP 127/80; O2SAT 99
== END 2024-02-29 03:35 | disposition home or self-care (01) ==
LOC: ER 23:54
DX: S63.592A Other specified sprain of left wrist, initial encounter (principal); S13.9XXA Sprain of joints and ligaments of unspecified parts of neck, initial encounter; S40.012A Contusion of left shoulder, initial encounter; S50.12XA Contusion of left forearm, initial encounter; W00.0XXA Fall on same level due to ice and snow, initial encounter
CPT/HCPCS: 72040; 99283